=== PATIENT | male | born 1975 | race Caucasian/White ===

== ENCOUNTER 2018-11-22 16:15 | Emergency (ER) | payer BC ==
[2018-11-22] MEDS ORDERED: BABY ASPIRIN 81 MG CHEW PO ONE (16:44)
--- NOTE | 2018-11-22 16:50 | ERPHSYRPT ---
<JONES ROSADO TIFFANIE - Last Filed: 11/22/18 19:05> - History of Present Illness Time Seen by Provider: 11/22/18 16:39 Historian: patient Exam Limitations: no limitations Patient Subjective Stated Complaint: Pt states "My chest has been hurting on and off and when I sneeze the pain goes down my left arm. I am having no pain now, it only hurts when I sneeze." Triage Nursing Assessment: PT alert and oriented X 3, skin pwd. Pt ambulates with an upright steady gait, able to speak in clear full sentences. Pt in no apparent respiratory distress. Physician History: 43-year-old white male with history of alpha-1 antitrypsin disease arrives with complaint of intermittent chest pain off and on for several weeks this is associated with shortness of breath. He states he occasionally has pain radiating to his left arm worse if he sneezed he states he has been short of breath. He has no nausea no vomiting. He states today his pain has been going on for a couple of hours. Past medical history includes alpha-1 antitrypsin Past surgical history includes left arm surgery with nerve repair and a torn ligament Social history former smoker patient denies alcohol or illicit drug use. Timing/Duration: other (symptoms for several weeks off and on) Activities at Onset: none Quality: dullness Location: central Chest Pain Radiation: arm (left arm) Severity of Pain-Max: moderate Severity of Pain-Current: none Modifying Factors: Worsens With: antacids, breathing, coughing, defecating, eating, exertion, lying down, morphine, movement, nitroglycerin, oxygen, palpation, rest, aspirin, sitting up, change in position Associated Symptoms: shortness of breath, No nausea, No vomiting, No palpitations, No heartburn, No abdominal pain, No cough, No hurts to breathe, No diaphoresis, No chills, No fever, No fatigue, No weakness, No swelling/lump in chest, No syncope, No rash, No headache, No dizziness, No edema, No back pain Prior Chest Pain/Cardiac Workup: no prior chest pain Nitro Today/Relief: no nitro taken today Aspirin Treatment Today: 81 mg x 4, provided by ED Allergies/Adverse Reactions: No Known Drug Allergies Allergy (Verified 11/22/18 16:20) Home Medications: No Home Meds [No Home Meds] 1 ea MC UD 11/12/14 [History] Hx Tetanus, Diphtheria Vaccination/Date Given: No Hx Influenza Vaccination/Date Given: Yes Hx Pneumococcal Vaccination/Date Given: No Immunizations Up to Date: Yes - Review of Systems Constitutional: No Fever, No Chills Eyes: No Symptoms Ears, Nose, & Throat: No Symptoms Respiratory: Dyspnea, No Cough, No Cyanosis, No Dyspnea on Exertion (FARLEY), No Stridor, No Wheezing Cardiac: No No Symptoms, No Chest Pain, No Edema, No Syncope Abdominal/Gastrointestinal: No Abdominal Pain, No Nausea, No Vomiting, No Diarrhea Genitourinary Symptoms: No Dysuria Musculoskeletal: No Back Pain, No Neck Pain Skin: No Rash Neurological: No No Symptoms, No Dizziness, No Focal Weakness, No Sensory Changes Psychological: No No Symptoms (on) Endocrine: No Symptoms All Other Systems: Reviewed and Negative - Past Medical History Pertinent Past Medical History: Yes Musculoskeletal History: Other Other Medical History: Alpha one antitrypsin deficiency - Past Surgical History Past Surgical History: Yes Musculoskeletal: Orthopedic Surgery Other Surgical History: liver biopsy- no other prior surgeries - Social History Smoking Status: Former smoker Exposure to second hand smoke: No Drug Use: none Patient Lives Alone: No - Nursing Vital Signs Nursing Vital Signs: Initial Vital Signs Temperature 98.6 F 11/22/18 16:15 Pulse Rate 80 11/22/18 16:15 Respiratory Rate 18 11/22/18 16:15 Blood Pressure 139/92 11/22/18 16:15 O2 Sat by Pulse Oximetry 96 11/22/18 16:15 Pain Scale Pain Intensity 0 - Physical Exam General Appearance: no apparent distress, alert, obese Eye Exam: PERRL/EOMI, eyes nml inspection Ears, Nose, Throat Exam: normal ENT inspection, moist mucous membranes Neck Exam: normal inspection, non-tender, supple, full range of motion Respiratory Exam: normal breath sounds, lungs clear, No respiratory distress Cardiovascular Exam: regular rate/rhythm, normal heart sounds, capillary refill <2 sec Gastrointestinal/Abdomen Exam: soft, No tenderness, No mass Back Exam: normal inspection, No CVA tenderness, No vertebral tenderness Extremity Exam: normal inspection, normal range of motion Neurologic Exam: alert, oriented x 3, cooperative, pet handler II-XII nml as tested, normal mood/affect, sensation nml, No motor deficits Skin Exam: normal color SpO2 Interpretation: normal (96%) SpO2: 96 - Course Nursing assessment & vital signs reviewed: Yes EKG Interpreted by Me: RATE, Sinus Rhythm, NORMAL AXIS, Other (EKG: Sinus rhythm , 76 bpm, normal axis, no acute ST or T wave changes noted.) - Radiology Exams Chest X-ray Interpretation: Interpreted by me (no acute disease process noted) Ordered Tests: Active Orders 24 hr Category Date Time Status Trade Analyst STAT Care 11/22/18 16:45 Active EKG-ER Only STAT Care 11/22/18 16:44 Active IV Insertion STAT Care 11/22/18 16:44 Active Pulse Oximetry (ED) STAT Care 11/22/18 16:44 Active CHEST 1 VIEW (PORTABLE) Stat Exams 11/22/18 16:44 Taken AMYLASE Stat Lab 11/22/18 16:30 Completed CBC W DIFF Stat Lab 11/22/18 16:30 Completed CMP Stat Lab 11/22/18 16:30 Completed D-DIMER QUANTITATION Stat Lab 11/22/18 16:30 Completed LIPASE Stat Lab 11/22/18 16:30 Completed TROPONIN Q3H Lab 11/22/18 16:30 Completed TROPONIN Q3H Lab 11/22/18 19:48 Completed TROPONIN Q3H Lab 11/22/18 22:45 Ordered TROPONIN Q3H Lab 11/23/18 01:45 Ordered TROPONIN Q3H Lab 11/23/18 04:45 Ordered Medication Summary Discontinued Medications Generic Name Dose Route Start Last Admin Trade Name Freq PRN Reason Stop Dose Admin Aspirin 324 mg 11/22/18 16:44 11/22/18 17:03 Baby Aspirin 81 Mg Chew PO 11/22/18 16:45 324 mg STAT ONE Administration Aspirin Confirm 11/22/18 17:02 Baby Aspirin 81 Mg Chew Administered 11/22/18 17:03 Dose 324 mg .ROUTE .STK-MED ONE Morphine Sulfate Confirm 11/22/18 19:16 Morphine Sulfate 2 Mg Inj Administered 11/22/18 19:17 Dose 2 mg .ROUTE .STK-MED ONE Morphine Sulfate 2 mg 11/22/18 19:23 11/22/18 19:27 Morphine Sulfate 2 Mg Inj IV 11/22/18 19:24 2 mg STAT ONE Administration Lab/Rad Data: Laboratory Result Diagrams 11/22/18 16:30 11/22/18 16:30 Laboratory Results 11/22/18 11/22/18 11/22/18 Range/Units 19:48 16:30 16:30 WBC (4.0-10.5) K/mm3 RBC (4.1-5.6) M/mm3 Hgb (12.5-18.0) gm/dl Hct (42-50) % MCV (78-100) fl MCH (26-32) pg MCHC (32-36) g/dl RDW (11.5-14.0) % Plt Count (150-450) K/mm3 MPV (6-9.5) fl Gran % (36.0-66.0) % Eos # (Auto) (0-0.5) Absolute Lymphs (auto) (1.0-4.6) Absolute Monos (auto) (0.0-1.3) Lymphocytes % (24.0-44.0) % Monocytes % (0.0-12.0) % Eosinophils % (0.00-5.0) % Basophils % (0.0-0.4) % Absolute Granulocytes (1.4-6.9) Basophils # (0-0.4) D-Dimer (215-500) ng/mL Sodium (137-145) mmol/L Potassium (3.5-5.1) mmol/L Chloride (98-107) mmol/L Carbon Dioxide (22-30) mmol/L Anion Gap (5-15) MEQ/L BUN (9-20) mg/dL Creatinine (0.66-1.25) mg/dL Estimated GFR ML/MIN Glucose (74-106) mg/dL Calcium (8.4-10.2) mg/dL Total Bilirubin (0.2-1.3) mg/dL AST (17-59) U/L ALT (0-50) U/L Alkaline Phosphatase (38-126) U/L Troponin I < 0.012 < 0.012 (0.000-0.034) ng/mL Serum Total Protein (6.3-8.2) g/dL Albumin (3.5-5.0) g/dL Amylase 81 (30-110) U/L Lipase 154 (23-300) U/L 11/22/18 11/22/18 11/22/18 Range/Units 16:30 16:30 16:30 WBC 7.6 (4.0-10.5) K/mm3 RBC 4.98 (4.1-5.6) M/mm3 Hgb 16.2 (12.5-18.0) gm/dl Hct 47.0 (42-50) % MCV 94.4 (78-100) fl MCH 32.5 H (26-32) pg MCHC 34.5 (32-36) g/dl RDW 12.7 (11.5-14.0) % Plt Count 236 (150-450) K/mm3 MPV 11.0 H (6-9.5) fl Gran % 56.9 (36.0-66.0) % Eos # (Auto) 0.54 H (0-0.5) Absolute Lymphs (auto) 1.90 (1.0-4.6) Absolute Monos (auto) 0.80 (0.0-1.3) Lymphocytes % 25.0 (24.0-44.0) % Monocytes % 10.5 (0.0-12.0) % Eosinophils % 7.1 H (0.00-5.0) % Basophils % 0.5 (0.0-0.4) % Absolute Granulocytes 4.32 (1.4-6.9) Basophils # 0.04 (0-0.4) D-Dimer 246 (215-500) ng/mL Sodium 140 (137-145) mmol/L Potassium 3.9 (3.5-5.1) mmol/L Chloride 106 (98-107) mmol/L Carbon Dioxide 25 (22-30) mmol/L Anion Gap 12.6 (5-15) MEQ/L BUN 14 (9-20) mg/dL Creatinine 0.84 (0.66-1.25) mg/dL Estimated GFR > 60.0 ML/MIN Glucose 102 (74-106) mg/dL Calcium 9.4 (8.4-10.2) mg/dL Total Bilirubin 0.40 (0.2-1.3) mg/dL AST 55 (17-59) U/L ALT 72 H (0-50) U/L Alkaline Phosphatase 75 (38-126) U/L Troponin I (0.000-0.034) ng/mL Serum Total Protein 6.9 (6.3-8.2) g/dL Albumin 3.9 (3.5-5.0) g/dL Amylase (30-110) U/L Lipase (23-300) U/L - Progress Progress: improved Air Movement: fair Progress Note: 11/22/18 18:57 43-year-old white male arrives with complaint of chest pain shortness of breath off and on for several weeks today for approximately 2-1/2 hours Patient with stable vitals patient's EKG sinus rhythm 76 bpm normal axis no acute ST or T wave changes Patient's chest x-ray no acute disease process noted patient's CBC within normal limits chemistry essentially normal troponin less than 0.012 amylase and lipase are normal D-dimer within normal limits. Patient is given aspirin 324 mg. Will plan on repeating patient's troponin. 11/22/18 19:[address] Peraza, he will assume care of this patient secondary to shift change - Departure Clinical Impression: Chest pain Condition: Stable Referrals: SANKET GUTIERREZ MD [Primary Care Provider] - Additional Instructions: follow up with primary doctor for further management <VANI PERAZA - Last Filed: 11/22/18 20:24> - Progress Progress Note: 11/22/18 20:23 no cp, hungry and thirsty. wants to go home. 3 hour troponin normal Blood Culture(s) Obtained: No Antibiotics given: No Counseled pt/family regarding: lab results, diagnosis, need for follow-up, rad results - Departure Departure Disposition: Home Critical Care Time: No
[2018-11-22 16:55] LABS: BASOPHIL % 0.5 % (0.0-0.4); Basophil (Absolute #) 0.04 (0-0.4); Eosinophil % 7.1 % (0.00-5.0); Eosinophil (Absolute #) 0.54 (0-0.5); Granulocyte Absolute (ANC) 4.32 (1.4-6.9); Granulocytes % 56.9 % (36.0-66.0); Hemoglobin 16.2 gm/dl (12.5-18.0); Mean Cell Volume 94.4 fl (78-100); Mean Corpuscular Hemoglobin 32.5 pg (26-32); Mean Corpuscular Hgb Concent. 34.5 g/dl (32-36); Monocytes % 10.5 % (0.0-12.0); Platelet Count 236 K/mm3 (150-450); Red Blood Count 4.98 M/mm3 (4.1-5.6); Red Cell Distribution Width 12.7 % (11.5-14.0); White Blood Count 7.6 K/mm3 (4.0-10.5)
[2018-11-22 16:58] LABS: AMYLASE 81 U/L (30-110); LIPASE 154 U/L (23-300)
[2018-11-22 17:00] LABS: ALBUMIN 3.9 g/dL (3.5-5.0); ALKALINE PHOSPHATASE 75 U/L (38-126); ANION GAP 12.6 MEQ/L (5-15); BLOOD UREA NITROGEN 14 mg/dL (9-20); CHLORIDE 106 mmol/L (98-107); Calcium 9.4 mg/dL (8.4-10.2); Carbon Dioxide 25 mmol/L (22-30); Creatinine 1 0.84 mg/dL (0.66-1.25); Glucose 102 mg/dL (74-106); Potassium 3.9 mmol/L (3.5-5.1); SGOT/AST 55 U/L (17-59); SGPT/ALT 72 U/L (0-50); SODIUM 140 mmol/L (137-145); Total Protein 6.9 g/dL (6.3-8.2)
[2018-11-22] MEDS ORDERED: BABY ASPIRIN 81 MG CHEW ONE (17:02)
[2018-11-22] MEDS ORDERED: MORPHINE SULFATE 2 MG INJ ONE (19:16)
[2018-11-22] MEDS ORDERED: MORPHINE SULFATE 2 MG INJ IV ONE (19:23)
[2018-11-22 20:29] VITALS: BP 130/69; PULSE 69; O2SAT 99
--- NOTE | 2018-11-23 08:36 | XRAY ---
Indication: Chest pain, fever, and cough. Comparison: October 07, 2016. Portable apical lordotic chest is clear. Heart and mediastinal structures within normal limits. Bony thorax intact. No new/acute findings. Impression: Nonacute chest.
== END 2018-11-22 20:40 | disposition home or self-care (01) ==
LOC: ED 16:15
DX: R07.9 Chest pain, unspecified (principal); M79.602 Pain in left arm; E88.01 Alpha-1-antitrypsin deficiency
CPT/HCPCS: 36000; 36415; 71045; 80053; 82150; 83690; 84484; 85025; 85379; 93005; 93041; 96374; 99284; J2270; A9270-GY

== ENCOUNTER 2021-09-25 15:21 | Emergency (ER) | payer BC ==
--- NOTE | 2021-09-25 15:33 | ERPHSYRPT ---
- History of Present Illness Time Seen by Provider: 09/25/21 15:32 Source: patient Exam Limitations: no limitations Physician History: This is a 46-year-old morbidly obese patient of Dr. Gutierrez who was diagnosed with COVID-19 infection 3 weeks ago. Patient, in the last 2 weeks, has noticed persistent cough with some mild shortness of breath. He does not have chest pain. Patient does have a history of hypertension and alpha 1 antitrypsin deficiency. Patient was seen by Dr. Gutierrez yesterday and had lab work drawn. He had an elevated D-dimer. Patient also complains of some leg pain with bilateral lower extremities showing increased edema. Patient was sent to the emergency department to obtain a CTA of the chest and bilateral lower extremity venous Dopplers. Timing/Duration: week(s) (2) Cough Quality/Degree: mild Possible Cause: occasional episodes Modifying Factors: Improves With: activity, coughing Associated Symptoms: cough, muscle aches, shortness of breath, No fever, No chest pain/soreness Allergies/Adverse Reactions: No Known Drug Allergies Allergy (Verified 09/25/21 15:36) Home Medications: Lisinopril 10 mg [Zestril 10 MG] 10 mg PO HS 09/25/21 [History] Hx Tetanus, Diphtheria Vaccination/Date Given: No Hx Influenza Vaccination/Date Given: Yes Hx Pneumococcal Vaccination/Date Given: No Travel Risk - International Travel Have you traveled outside of the country in past 3 weeks: No - Coronavirus Screening Are you exhibiting any of the following symptoms?: Yes Symptoms: Cough: New Onset, Shortness of Breath Close contact with a COVID-19 positive Pt in past 14-21 Days: No - Review of Systems Constitutional: No Symptoms Eyes: No Symptoms Ears, Nose, & Throat: No Symptoms Respiratory: Cough, Dyspnea Cardiac: No Symptoms Abdominal/Gastrointestinal: No Symptoms Genitourinary Symptoms: No Symptoms Musculoskeletal: Myalgias (Bilateral lower extremities) Skin: No Symptoms Neurological: No Symptoms Psychological: No Symptoms Endocrine: No Symptoms Hematologic/Lymphatic: No Symptoms Immunological/Allergic: No Symptoms All Other Systems: Reviewed and Negative - Past Medical History Pertinent Past Medical History: Yes Musculoskeletal History: Other Other Medical History: Alpha one antitrypsin deficiency - Past Surgical History Past Surgical History: Yes Musculoskeletal: Orthopedic Surgery Other Surgical History: liver biopsy- no other prior surgeries - Social History Smoking Status: Former smoker Exposure to second hand smoke: No Drug Use: none Patient Lives Alone: No - Nursing Vital Signs Nursing Vital Signs: Initial Vital Signs Temperature 97.1 F 09/25/21 15:30 Pulse Rate 64 09/25/21 15:30 Respiratory Rate 22 09/25/21 15:30 Blood Pressure 128/74 09/25/21 15:30 O2 Sat by Pulse Oximetry 98 09/25/21 15:30 Pain Scale Pain Intensity 1 - Physical Exam General Appearance: no apparent distress, alert, anxiety, obese Eye Exam: PERRL/EOMI, eyes nml inspection Ears, Nose, Throat Exam: normal ENT inspection, moist mucous membranes Neck Exam: normal inspection, non-tender, supple, full range of motion Respiratory Exam: normal breath sounds, lungs clear, airway intact, No chest tenderness, No respiratory distress Cardiovascular Exam: regular rate/rhythm, normal heart sounds, normal peripheral pulses Gastrointestinal/Abdomen Exam: soft, normal bowel sounds, No tenderness Rectal Exam: not done Back Exam: normal inspection, normal range of motion, No CVA tenderness, No vertebral tenderness Extremity Exam: normal range of motion, pelvis stable, pedal edema (Mild bilateral feet and ankles) Neurologic Exam: alert, oriented x 3, cooperative, loan funder II-XII nml as tested, normal mood/affect, nml cerebellar function, nml station & gait, sensation nml Skin Exam: normal color, warm, dry Lymphatic Exam: No adenopathy SpO2 Interpretation: normal O2 Delivery: Room Air - Course Nursing assessment & vital signs reviewed: Yes Ordered Tests: Active Orders 24 hr Category Date Time Status IV Insertion STAT Care 09/25/21 15:53 Active CHEST WITH CONTRAST [CT] Stat Exams 09/25/21 15:53 Completed VENOUS BILATERAL EXTREMITY [US] Stat Exams 09/25/21 15:54 Completed Medication Summary Discontinued Medications Generic Name Dose Route Start Last Admin Trade Name Freq PRN Reason Stop Dose Admin Sodium Chloride 500 mls @ 500 mls/hr 09/25/21 15:53 09/25/21 16:36 Sodium Chloride 0.9% 500 Ml IV 09/25/21 16:52 500 mls/hr .Q1H ONE Administration Sodium Chloride Confirm 09/25/21 16:35 Sodium Chloride 0.9% 500 Ml Administered 09/25/21 16:36 Dose 500 mls @ ud IV .STK-MED ONE - Progress Progress: improved Air Movement: good Progress Note: 09/25/21 17:19 CAT scan of the chest without contrast shows no pulmonary embolus. There is no acute cardiopulmonary process. 09/25/21 17:20 Venous ultrasound of bilateral lower extremities is negative for any DVT Blood Culture(s) Obtained: No Antibiotics given: No Counseled pt/family regarding: diagnosis, need for follow-up, rad results - Departure Departure Disposition: Home Clinical Impression: Bronchitis Condition: Stable Critical Care Time: No Referrals: SANKET GUTIERREZ MD [Primary Care Provider] - Follow up/PCP as directed Additional Instructions: Take your medication as prescribed. Follow-up with Dr. Gutierrez in his office for further management. Prescriptions: Hydrocodone/Acetaminophen [Hydrocodone-Acetamn 7.5-325/15] 10 ml PO Q8H PRN PRN #120 ml MDD 30 ml PRN Reason: Cough Prednisone 10 mg [Deltasone 10 mg] 10 mg PO TID #12 tablet
[2021-09-25] MEDS ORDERED: Sodium Chloride 0.9% 500 ML 500 ML IV ONE ×2 (15:53→16:35)
[2021-09-25 16:57] VITALS: O2SAT 100
--- NOTE | 2021-09-25 17:13 | XRAY ---
Indication: Pulmonary embolus. Elevated d-dimer. Multiple contiguous axial images obtained through the chest using 100 cc Isovue 370 contrast and PE protocol. Comparison: None Good opacification of the pulmonary arteries to include the lobar and segmental branches. No pulmonary embolus. Heart not enlarged. Aorta is normal in course and caliber. No pathologic mediastinal/hilar lymphadenopathy. Lungs demonstrates minimal bilateral dependent atelectasis. Right upper lobe demonstrates 2-3 sub-5 mm indeterminant noncalcified nodules. No infiltrates, effusion, or pneumothorax. Bony thorax intact with minimal degenerative changes throughout the spine. Limited upper abdomen demonstrates fatty liver and 15 cm splenomegaly. Impression: 1. Negative pulmonary embolus. No acute cardiopulmonary abnormalities. 2. Tiny indeterminate right upper lobe noncalcified nodules. Too small for PET CT, recommend follow-up per Fleischner guidelines. 3. Fatty liver and splenomegaly.
--- NOTE | 2021-09-25 17:15 | XRAY ---
Indication: Bilateral edema. Two-dimensional sonogram and color Doppler imaging of the major venous vessels of the left and right leg performed. Comparison: None No thrombus seen in the examined deep venous vessels of the left and right leg including greater saphenous vein. Veins demonstrate normal compressibility. Venous waveforms are normal with and without augmentation. Impression: Left and right legs negative for DVT.
[2021-09-25 17:36] VITALS: BP 138/80; PULSE 70
== END 2021-09-25 17:35 | disposition home or self-care (01) ==
LOC: ED 15:21
DX: J20.9 Acute bronchitis, unspecified (principal); R05.9 Cough, unspecified; M79.10 Myalgia, unspecified site; R06.02 Shortness of breath; I10 Essential (primary) hypertension; E88.01 Alpha-1-antitrypsin deficiency; Z79.891 Long term (current) use of opiate analgesic; Z79.52 Long term (current) use of systemic steroids
CPT/HCPCS: 36000; 71260; 93970; 99284

== ENCOUNTER 2021-11-09 11:24 | Emergency (ER) | payer BC ==
--- NOTE | 2021-11-09 11:47 | ERPHSYRPT ---
- History of Present Illness Time Seen by Provider: 11/09/21 11:45 Source: patient Exam Limitations: no limitations Patient Subjective Stated Complaint: Pt states "My ankles have been swelling and my pants are getting tighter and tighter. They put me on lasix and I am still retaining and having chest pain. I wighed 326 lbs a couple weeks ago." Triage Nursing Assessment: PT presented alert and oriented X 3, skin pwd. PT ambulates with an upright steady gait, able to speak in clear full sentencse pt in no apparent respiratory distress. PT has +2 pitting edema noted bilat lower extremeties. Physician History: This is a morbidly obese 46-year-old white male patient who has a history of hypertension and in the last several weeks had noticed increasing edema in his ankles and his pants becoming tighter. Patient was in this emergency department in September 2021 to undergo a CTA of the chest because of lab work showing an elevated D-dimer with pain in his legs. He was seen in Dr. Mckeon's office on that day. The CTA of the chest on 09/25/2021 was negative for any pulmonary embolism. Patient has a history of alpha 1 antitrypsin deficiency. Despite being placed on Lasix 20 mg orally once a day, in the last 2 weeks, patient has gone from 326 pounds to 339 pounds today. He was also having some intermittent chest pain and became concerned. Patient is also taking supplemental potassium. Timing/Duration: week(s) Severity: mild Associated Symptoms: denies symptoms Allergies/Adverse Reactions: No Known Drug Allergies Allergy (Verified 09/25/21 15:36) Home Medications: Furosemide [Lasix] 20 mg PO DAILY 11/09/21 [History] Losartan Potassium [Cozaar] 100 mg PO BID 11/09/21 [History] Trazodone HCl 100 mg PO HS 11/09/21 [History] Hx Tetanus, Diphtheria Vaccination/Date Given: No Hx Influenza Vaccination/Date Given: Yes Hx Pneumococcal Vaccination/Date Given: No Immunizations Up to Date: Yes Travel Risk - International Travel Have you traveled outside of the country in past 3 weeks: No - Coronavirus Screening Are you exhibiting any of the following symptoms?: No Close contact with a COVID-19 positive Pt in past 14-21 Days: No - Vaccine Status Have you recieved a Covid-19 vaccination: No - Review of Systems Constitutional: No Symptoms Eyes: No Symptoms Ears, Nose, & Throat: No Symptoms Respiratory: No Symptoms Cardiac: Chest Pain (Intermittent but none now) Abdominal/Gastrointestinal: No Symptoms Genitourinary Symptoms: No Symptoms Musculoskeletal: No Symptoms Skin: No Symptoms Neurological: No Symptoms Psychological: No Symptoms Endocrine: No Symptoms Hematologic/Lymphatic: No Symptoms Immunological/Allergic: No Symptoms All Other Systems: Reviewed and Negative - Past Medical History Pertinent Past Medical History: Yes Neurological History: No Pertinent History Cardiac History: Hypertension Respiratory History: Other Endocrine Medical History: Liver Disease Musculoskeletal History: No Pertinent History Other Medical History: LIVER ENZYME DEFICIENCY - ALPHA-1 TRYPTISINE. SX HX: LEFT ULNAR NERVE TRANSPOSITION, TENNIS ELBOW RELEASE AND CARPAL TUNNEL 10 YEARS AGO. - Past Surgical History Past Surgical History: Yes Musculoskeletal: Orthopedic Surgery Other Surgical History: liver biopsy- no other prior surgeries - Social History Smoking Status: Former smoker Exposure to second hand smoke: No Drug Use: none Patient Lives Alone: No - Nursing Vital Signs Nursing Vital Signs: Initial Vital Signs Temperature 97.8 F 11/09/21 11:25 Pulse Rate 79 11/09/21 11:25 Respiratory Rate 22 11/09/21 11:25 Blood Pressure 177/89 11/09/21 11:25 O2 Sat by Pulse Oximetry 98 11/09/21 11:25 Pain Scale Pain Intensity 6 - Physical Exam General Appearance: no apparent distress, alert, anxiety, obese Eye Exam: PERRL/EOMI, eyes nml inspection Ears, Nose, Throat Exam: normal ENT inspection, moist mucous membranes Neck Exam: normal inspection, non-tender, supple, full range of motion Respiratory Exam: normal breath sounds, lungs clear, airway intact, No chest tenderness, No respiratory distress Cardiovascular Exam: regular rate/rhythm, normal heart sounds, normal peripheral pulses Gastrointestinal/Abdomen Exam: soft, normal bowel sounds, No tenderness Rectal Exam: not done Back Exam: normal inspection, normal range of motion, No CVA tenderness, No vertebral tenderness Extremity Exam: pedal edema (Bilateral 2+ ankle and feet edema), swelling Neurologic Exam: alert, oriented x 3, cooperative, dye range feeder II-XII nml as tested, normal mood/affect, nml cerebellar function, nml station & gait, sensation nml Skin Exam: normal color, warm, dry Lymphatic Exam: No adenopathy SpO2 Interpretation: normal SpO2: 98 O2 Delivery: Room Air - Course Nursing assessment & vital signs reviewed: Yes EKG Interpreted by Me: RATE ([id number]), Left [place] Deviation, NORMAL INTERVALS, NORMAL ST-T, Other (There are no acute ischemic changes on today's EKG) Ordered Tests: Active Orders 24 hr Category Date Time Status EKG-ER Only STAT Care 11/09/21 11:50 Active IV Insertion STAT Care 11/09/21 11:50 Active Pulse Oximetry (ED) STAT Care 11/09/21 11:50 Active CBC W DIFF Stat Lab 11/09/21 11:30 Completed CMP Stat Lab 11/09/21 11:30 Completed D-DIMER QUANTITATIVE Stat Lab 11/09/21 11:30 Completed NT PRO BNP Stat Lab 11/09/21 11:30 Completed TROPONIN Q3H Lab 11/09/21 11:30 Completed TROPONIN Q3H Lab 11/09/21 15:00 Ordered TROPONIN Q3H Lab 11/09/21 18:00 Ordered TROPONIN Q3H Lab 11/09/21 21:00 Ordered TROPONIN Q3H Lab 11/10/21 00:00 Ordered UA W/RFX UR CULTURE Stat Lab 11/09/21 12:54 Ordered Medication Summary Discontinued Medications Generic Name Dose Route Start Last Admin Trade Name Freq PRN Reason Stop Dose Admin Furosemide 40 mg 11/09/21 12:15 11/09/21 12:24 Furosemide 40 Mg/4 Ml Vial IV 11/09/21 12:16 40 mg STAT ONE Administration Furosemide Confirm 11/09/21 12:23 Furosemide 40 Mg/4 Ml Vial Administered 11/09/21 12:24 Dose 40 mg .ROUTE .[facility] ONE Lab/Rad Data: Laboratory Result Diagrams 11/09/21 11:30 11/09/21 11:30 Laboratory Results 11/09/21 11/09/21 11/09/21 Range/Units 11:30 11:30 11:30 WBC (4.0-10.5) K/mm3 RBC (4.1-5.6) M/mm3 Hgb (12.5-18.0) gm/dl Hct (42-50) % MCV (78-100) fl MCH (26-32) pg MCHC (32-36) g/dl RDW (11.5-14.0) % Plt Count (150-450) K/mm3 MPV (7.5-11.0) fl Gran % (36.0-66.0) % Eos # (Auto) (0-0.5) Absolute Lymphs (auto) (1.0-4.6) Absolute Monos (auto) (0.0-1.3) Lymphocytes % (24.0-44.0) % Monocytes % (0.0-12.0) % Eosinophils % (0.00-5.0) % Basophils % (0.0-0.4) % Absolute Granulocytes (1.4-6.9) Basophils # (0-0.4) D-Dimer 398 (215-500) ng/mL Sodium 139 (137-145) mmol/L Potassium 3.9 (3.5-5.1) mmol/L Chloride 107 (98-107) mmol/L Carbon Dioxide 26 (22-30) mmol/L Anion Gap 10.1 (5-15) MEQ/L BUN 19 (9-20) mg/dL Creatinine 0.81 (0.66-1.25) mg/dL Estimated GFR > 60.0 ML/MIN Glucose 103 (74-106) mg/dL Calcium 9.2 (8.4-10.2) mg/dL Total Bilirubin 0.60 (0.2-1.3) mg/dL AST 63 H (17-59) U/L ALT 78 H (0-50) U/L Alkaline Phosphatase 72 (38-126) U/L Troponin I < 0.012 (0.000-0.034) ng/mL NT-Pro-B Natriuret Pep 69.8 (0-450) pg/mL Serum Total Protein 6.8 (6.3-8.2) g/dL Albumin 3.9 (3.5-5.0) g/dL 11/09/21 Range/Units 11:30 WBC 5.1 (4.0-10.5) K/mm3 RBC 4.69 (4.1-5.6) M/mm3 Hgb 15.6 (12.5-18.0) gm/dl Hct 45.5 (42-50) % MCV 97.0 (78-100) fl MCH 33.3 H (26-32) pg MCHC 34.3 (32-36) g/dl RDW 12.8 (11.5-14.0) % Plt Count 198 (150-450) K/mm3 MPV 11.6 H (7.5-11.0) fl Gran % 54.2 (36.0-66.0) % Eos # (Auto) 0.33 (0-0.5) Absolute Lymphs (auto) 1.42 (1.0-4.6) Absolute Monos (auto) 0.58 (0.0-1.3) Lymphocytes % 27.7 (24.0-44.0) % Monocytes % 11.3 (0.0-12.0) % Eosinophils % 6.4 H (0.00-5.0) % Basophils % 0.4 (0.0-0.4) % Absolute Granulocytes 2.78 (1.4-6.9) Basophils # 0.02 (0-0.4) D-Dimer (215-500) ng/mL Sodium (137-145) mmol/L Potassium (3.5-5.1) mmol/L Chloride (98-107) mmol/L Carbon Dioxide (22-30) mmol/L Anion Gap (5-15) MEQ/L BUN (9-20) mg/dL Creatinine (0.66-1.25) mg/dL Estimated GFR ML/MIN Glucose (74-106) mg/dL Calcium (8.4-10.2) mg/dL Total Bilirubin (0.2-1.3) mg/dL AST (17-59) U/L ALT (0-50) U/L Alkaline Phosphatase (38-126) U/L Troponin I (0.000-0.034) ng/mL NT-Pro-B Natriuret Pep (0-450) pg/mL Serum Total Protein (6.3-8.2) g/dL Albumin (3.5-5.0) g/dL - Progress Progress: unchanged Counseled pt/family regarding: lab results, diagnosis, need for follow-up, rad results - Departure Departure Disposition: Home Clinical Impression: Pedal edema, Weight gain Condition: Stable Critical Care Time: No [facility] - Follow up/PCP as directed Additional Instructions: Take 20 mg of your Lasix (furosemide) tonight, 11/09/2021. Then increase your Lasix to 20 mg twice a day. Call Dr. Mckeon's office on 11/11/2021 for further evaluation recommendations, and management
[2021-11-09 12:09] LABS: Absolute Neutrophil Ct (ANC) 2.78 (1.4-6.9); Basophil (Absolute #) 0.02 (0-0.4); Eosinophil % 6.4 % (0.00-5.0); Eosinophil (Absolute #) 0.33 (0-0.5); Hematocrit 45.5 % (42-50); Hemoglobin 15.6 gm/dl (12.5-18.0); Lymphocyte (Absolute #) 1.42 (1.0-4.6); Lymphocytes % 27.7 % (24.0-44.0); Mean Corpuscular Hemoglobin 33.3 pg (26-32); Mean Corpuscular Hgb Concent. 34.3 g/dl (32-36); Mean Platelet Volume 11.6 fl (7.5-11.0); Monocyte (Absolute #) 0.58 (0.0-1.3); Monocytes % 11.3 % (0.0-12.0); Neutrophil % 54.2 % (36.0-66.0); Platelet Count 198 K/mm3 (150-450); Red Blood Count 4.69 M/mm3 (4.1-5.6); Red Cell Distribution Width 12.8 % (11.5-14.0); White Blood Count 5.1 K/mm3 (4.0-10.5)
[2021-11-09] MEDS ORDERED: Lasix 40 MG/4 ML IV ONE (12:15)
[2021-11-09] MEDS ORDERED: Lasix 40 MG/4 ML ONE (12:23)
[2021-11-09 12:31] LABS: ALBUMIN 3.9 g/dL (3.5-5.0); ALKALINE PHOSPHATASE 72 U/L (38-126); ANION GAP 10.1 MEQ/L (5-15); BLOOD UREA NITROGEN 19 mg/dL (9-20); CHLORIDE 107 mmol/L (98-107); Calcium 9.2 mg/dL (8.4-10.2); Carbon Dioxide 26 mmol/L (22-30); Creatinine 1 0.81 mg/dL (0.66-1.25); EST GLOMERULAR FILTRATION RATE > 60.0 ML/MIN; Glucose 103 mg/dL (74-106); NT PRO BNP 69.8 pg/mL (0-450); Potassium 3.9 mmol/L (3.5-5.1); SGOT/AST 63 U/L (17-59); SGPT/ALT 78 U/L (0-50); SODIUM 139 mmol/L (137-145); Total Protein 6.8 g/dL (6.3-8.2)
[2021-11-09 12:58] VITALS: O2SAT 98
[2021-11-09 13:08] VITALS: BP 144/73; PULSE 77
[2021-11-09 13:12] LABS: Appearance CLEAR (CLEAR); Bilirubin NEGATIVE (NEGATIVE); Blood NEGATIVE Ery/ul (0-5); Glucose NEGATIVE (NEGATIVE); Ketones NEGATIVE (NEGATIVE); Leukocyte Esterase NEGATIVE (NEGATIVE); Nitrite NEGATIVE (NEGATIVE); Protein,Urine Dip NEGATIVE (Negative); Urobilinogen NORMAL mg/dL (0-1)
[2021-11-09 13:13] LABS: ADD URINE CULTURE? NO (NO); Epithelial Cells RARE /HPF (FEW); RBC NONE SEEN /HPF (0-2)
== END 2021-11-09 13:19 | disposition home or self-care (01) ==
LOC: ED 11:24
DX: R60.9 Edema, unspecified (principal); R63.5 Abnormal weight gain; E88.01 Alpha-1-antitrypsin deficiency; R07.9 Chest pain, unspecified; I10 Essential (primary) hypertension; Z79.899 Other long term (current) drug therapy
CPT/HCPCS: 36000; 36415; 80053; 81001; 83880; 84484; 85025; 85379; 93005; 94760; 96374; 99284; J1940

== ENCOUNTER 2021-11-30 14:47 | Emergency (ER) | payer BC ==
[2021-11-30 15:40] LABS: Absolute Neutrophil Ct (ANC) 4.26 (1.4-6.9); Basophil (Absolute #) 0.03 (0-0.4); Hematocrit 48.3 % (42-50); Hemoglobin 16.9 gm/dl (12.5-18.0); Lymphocyte (Absolute #) 2.49 (1.0-4.6); Lymphocytes % 30.9 % (24.0-44.0); Mean Cell Volume 95.5 fl (78-100); Mean Corpuscular Hemoglobin 33.4 pg (26-32); Mean Platelet Volume 11.6 fl (7.5-11.0); Monocyte (Absolute #) 0.89 (0.0-1.3); Neutrophil % 52.7 % (36.0-66.0); Platelet Count 263 K/mm3 (150-450); Red Blood Count 5.06 M/mm3 (4.1-5.6); Red Cell Distribution Width 13.2 % (11.5-14.0); White Blood Count 8.1 K/mm3 (4.0-10.5)
[2021-11-30 15:49] LABS: INR 1.07 (0.8-3.0); PROTIME 12.6 SECONDS (9.4-12.5)
[2021-11-30 16:01] LABS: ALBUMIN 4.1 g/dL (3.5-5.0); ALKALINE PHOSPHATASE 71 U/L (38-126); AMYLASE 64 U/L (30-110); ANION GAP 12.6 MEQ/L (5-15); BLOOD UREA NITROGEN 22 mg/dL (9-20); CHLORIDE 103 mmol/L (98-107); Calcium 9.3 mg/dL (8.4-10.2); Carbon Dioxide 26 mmol/L (22-30); Creatinine 1 0.97 mg/dL (0.66-1.25); EST GLOMERULAR FILTRATION RATE > 60.0 ML/MIN; Glucose 98 mg/dL (74-106); LIPASE 192 U/L (23-300); NT PRO BNP < 11.5 pg/mL (0-450); SGOT/AST 118 U/L (17-59); SGPT/ALT 117 U/L (0-50); SODIUM 138 mmol/L (137-145); Total Protein 7.1 g/dL (6.3-8.2)
[2021-11-30 16:02] LABS: Erythrocyte Sedimentation Rate 3 mm/hr (0-15)
[2021-11-30 17:13] LABS: WBC 0-2 /HPF (0-5)
[2021-11-30 17:15] LABS: Appearance CLEAR (CLEAR); Bilirubin NEGATIVE (NEGATIVE); Glucose 500 mg/dL (NEGATIVE); Ketones NEGATIVE (NEGATIVE); Nitrite NEGATIVE (NEGATIVE); Ph 6.5 (5-6); Protein,Urine Dip NEGATIVE (Negative); RBC NEGATIVE Ery/ul (0-5); Specific Gravity 1.015 (1.005-1.025); Urine Cultured Indicated? NO; Urobilinogen 0.2 mg/dL (0-1)
[2021-11-30 17:16] LABS: Dipstick done @ ? MAIN LAB
--- NOTE | 2021-11-30 18:33 | ERPHSYRPT ---
- History of Present Illness Time Seen by Provider: 11/30/21 15:00 Historian: patient Exam Limitations: no limitations Patient Subjective Stated Complaint: pt here for chest pain to center of chest after moving boards around outside, aslo co dizziness, feels like room is s pinning, some nausea, was recently dx with CHF and is new medications Triage Nursing Assessment: pt alert, resp easy, skin w/d/p. face mask applied, slight edema not lower legs, he states swelling has gotten better after getting on new water pill, Physician History: Patient is a 46-year-old male who presents with a complaint of chest pain. His problems actually started few weeks ago when he was diagnosed with CHF here in the ER he was seen later by Dr. Guy and was placed on Bumex and Jardiance. He says he has 30 pounds of fluid and he has lost about half of that. His plan he says is from Dr. Guy's to wait until he is lost some of the fluid before he starts any stress test or catheterization. Today he was actually exerting himself moving lumber and will advise choice and became dizzy nauseated and developed some chest discomfort. Timing/Duration: today Activities at Onset: other (Moving lumbar) Quality: fullness Location: substernal Chest Pain Radiation: no radiation Severity of Pain-Max: moderate Severity of Pain-Current: mild Modifying Factors: Improves With: rest Associated Symptoms: nausea, shortness of breath, dizziness Prior Chest Pain/Cardiac Workup: recently seen/treated Nitro Today/Relief: no nitro taken today Aspirin Treatment Today: no aspirin today Allergies/Adverse Reactions: No Known Drug Allergies Allergy (Verified 11/30/21 15:03) Home Medications: Losartan Potassium [Cozaar] 100 mg PO BID 11/09/21 [History] Trazodone HCl 100 mg PO HS 11/09/21 [History] Bumetanide 1 mg [Bumex 1 mg] 1 mg PO BID PRN 11/30/21 [History] Empagliflozin [Jardiance] 1 ea DAILY 11/30/21 [History] Hx Tetanus, Diphtheria Vaccination/Date Given: No Hx Influenza Vaccination/Date Given: No Hx Pneumococcal Vaccination/Date Given: No Immunizations Up to Date: Yes Travel Risk - International Travel Have you traveled outside of the country in past 3 weeks: No - Coronavirus Screening Are you exhibiting any of the following symptoms?: No Close contact with a COVID-19 positive Pt in past 14-21 Days: No - Vaccine Status Have you recieved a Covid-19 vaccination: No - Review of Systems Constitutional: No Fever, No Chills Eyes: No Symptoms Ears, Nose, & Throat: No Symptoms Respiratory: No Cough, No Dyspnea Cardiac: Chest Pain, No Edema, No Syncope Abdominal/Gastrointestinal: No Abdominal Pain, No Nausea, No Vomiting, No Diarrhea Genitourinary Symptoms: No Dysuria Musculoskeletal: No Back Pain, No Neck Pain Skin: No Rash Neurological: Dizziness, No Focal Weakness, No Sensory Changes Psychological: No Symptoms Endocrine: No Symptoms All Other Systems: Reviewed and Negative - Past Medical History Pertinent Past Medical History: Yes Neurological History: No Pertinent History Cardiac History: Congestive Heart Failure, Hypertension Respiratory History: Other Endocrine Medical History: Liver Disease Musculoskeletal History: No Pertinent History Other Medical History: LIVER ENZYME DEFICIENCY - ALPHA-1 TRYPTISINE. SX HX: LEFT ULNAR NERVE TRANSPOSITION, TENNIS ELBOW RELEASE AND CARPAL TUNNEL 10 YEARS AGO. - Past Surgical History Past Surgical History: Yes Musculoskeletal: Orthopedic Surgery Other Surgical History: liver biopsy- no other prior surgeries - Social History Smoking Status: Former smoker Exposure to second hand smoke: No Drug Use: none Patient Lives Alone: No - Nursing Vital Signs Nursing Vital Signs: Initial Vital Signs Temperature 97.2 F 11/30/21 14:56 Pulse Rate 86 11/30/21 14:56 Respiratory Rate 20 11/30/21 14:56 Blood Pressure 108/67 11/30/21 14:56 O2 Sat by Pulse Oximetry 96 11/30/21 14:56 Pain Scale Pain Intensity 5 - Physical Exam General Appearance: mild distress Eye Exam: PERRL/EOMI, eyes nml inspection Ears, Nose, Throat Exam: normal ENT inspection, moist mucous membranes Neck Exam: normal inspection, non-tender, supple, full range of motion Respiratory Exam: normal breath sounds, lungs clear, No respiratory distress Cardiovascular Exam: regular rate/rhythm, normal heart sounds Gastrointestinal/Abdomen Exam: soft, No tenderness, No mass Back Exam: normal inspection, No CVA tenderness, No vertebral tenderness Extremity Exam: normal inspection, normal range of motion Neurologic Exam: alert, oriented x 3, cooperative, normal mood/affect, sensation nml, No motor deficits Skin Exam: normal color, warm, dry SpO2: 90 - Course Nursing assessment & vital signs reviewed: Yes EKG Interpreted by Me: RATE (78), Sinus Rhythm - Radiology Exams Chest X-ray Interpretation: Interpreted by me, Negative Ordered Tests: Active Orders 24 hr Category Date Time Status EKG-ER Only STAT Care 11/30/21 15:28 Active CHEST 1 VIEW (PORTABLE) Stat Exams 11/30/21 15:29 Taken AMYLASE Stat Lab 11/30/21 15:10 Completed CBC W DIFF Stat Lab 11/30/21 15:10 Completed CMP Stat Lab 11/30/21 15:10 Completed D-DIMER QUANTITATIVE Stat Lab 11/30/21 15:10 Completed Erythrocyte Sedimentation Rate Stat Lab 11/30/21 15:10 Completed LIPASE Stat Lab 11/30/21 15:10 Completed Lactic Acid Stat Lab 11/30/21 15:40 Completed MAGNESIUM Stat Lab 11/30/21 15:10 Completed NT PRO BNP Stat Lab 11/30/21 15:10 Completed PROTIME WITH INR Stat Lab 11/30/21 15:10 Completed TROPONIN Q3H Lab 11/30/21 15:10 Completed TROPONIN Q3H Lab 11/30/21 18:00 Completed TROPONIN Q3H Lab 11/30/21 21:30 Ordered TROPONIN Q3H Lab 12/01/21 00:30 Ordered TROPONIN Q3H Lab 12/01/21 03:30 Ordered UA W/RFX CULTURE Stat Lab 11/30/21 16:15 Completed Lab/Rad Data: Laboratory Result Diagrams 11/30/21 15:10 11/30/21 15:10 Laboratory Results 11/30/21 11/30/21 11/30/21 Range/Units 18:00 16:15 15:40 WBC (4.0-10.5) K/mm3 RBC (4.1-5.6) M/mm3 Hgb (12.5-18.0) gm/dl Hct (42-50) % MCV (78-100) fl MCH (26-32) pg MCHC (32-36) g/dl RDW (11.5-14.0) % Plt Count (150-450) K/mm3 MPV (7.5-11.0) fl Gran % (36.0-66.0) % Eos # (Auto) (0-0.5) Absolute Lymphs (auto) (1.0-4.6) Absolute Monos (auto) (0.0-1.3) Lymphocytes % (24.0-44.0) % Monocytes % (0.0-12.0) % Eosinophils % (0.00-5.0) % Basophils % (0.0-0.4) % Absolute Granulocytes (1.4-6.9) Basophils # (0-0.4) ESR (0-15) mm/hr PT (9.4-12.5) SECONDS INR (0.8-3.0) D-Dimer (215-500) ng/mL Sodium (137-145) mmol/L Potassium (3.5-5.1) mmol/L Chloride (98-107) mmol/L Carbon Dioxide (22-30) mmol/L Anion Gap (5-15) MEQ/L BUN (9-20) mg/dL Creatinine (0.66-1.25) mg/dL Estimated GFR ML/MIN Glucose (74-106) mg/dL Lactic Acid 1.4 (0.4-2.0) Calcium (8.4-10.2) mg/dL Magnesium (1.6-2.3) mg/dL Total Bilirubin (0.2-1.3) mg/dL AST (17-59) U/L ALT (0-50) U/L Alkaline Phosphatase (38-126) U/L Troponin I < 0.012 (0.000-0.034) ng/mL NT-Pro-B Natriuret Pep (0-450) pg/mL Serum Total Protein (6.3-8.2) g/dL Albumin (3.5-5.0) g/dL Amylase (30-110) U/L Lipase (23-300) U/L Urinalys Dipstick Clnc MAIN LAB Urine Color YELLOW (YELLOW) Urine Appearance CLEAR (CLEAR) Urine pH 6.5 (5-6) Ur Specific [place] 1.015 (1.005-1.025) POC Urine Protein Conf NEGATIVE (Negative) Urine Ketones NEGATIVE (NEGATIVE) Urine Nitrite NEGATIVE (NEGATIVE) Urine Bilirubin NEGATIVE (NEGATIVE) Urine Urobilinogen 0.2 (0-1) mg/dL Urine Leukocytes NEGATIVE (NEGATIVE) Urine WBC (Auto) 0-2 (0-5) /HPF Urine RBC NEGATIVE (0-5) Suhail/ul Ur Culture Indicated? NO Urine Glucose 500 (NEGATIVE) mg/dL 11/30/21 11/30/21 11/30/21 Range/Units 15:10 15:10 15:10 WBC (4.0-10.5) K/mm3 RBC (4.1-5.6) M/mm3 Hgb (12.5-18.0) gm/dl Hct (42-50) % MCV (78-100) fl MCH (26-32) pg MCHC (32-36) g/dl RDW (11.5-14.0) % Plt Count (150-450) K/mm3 MPV (7.5-11.0) fl Gran % (36.0-66.0) % Eos # (Auto) (0-0.5) Absolute Lymphs (auto) (1.0-4.6) Absolute Monos (auto) (0.0-1.3) Lymphocytes % (24.0-44.0) % Monocytes % (0.0-12.0) % Eosinophils % (0.00-5.0) % Basophils % (0.0-0.4) % Absolute Granulocytes (1.4-6.9) Basophils # (0-0.4) ESR (0-15) mm/hr PT 12.6 H (9.4-12.5) SECONDS INR 1.07 (0.8-3.0) D-Dimer 399 (215-500) ng/mL Sodium 138 (137-145) mmol/L Potassium 4.0 (3.5-5.1) mmol/L Chloride 103 (98-107) mmol/L Carbon Dioxide 26 (22-30) mmol/L Anion Gap 12.6 (5-15) MEQ/L BUN 22 H (9-20) mg/dL Creatinine 0.97 (0.66-1.25) mg/dL Estimated GFR > 60.0 ML/MIN Glucose 98 (74-106) mg/dL Lactic Acid (0.4-2.0) Calcium 9.3 (8.4-10.2) mg/dL Magnesium 2.0 (1.6-2.3) mg/dL Total Bilirubin 0.90 (0.2-1.3) mg/dL AST 118 H (17-59) U/L ALT 117 H (0-50) U/L Alkaline Phosphatase 71 (38-126) U/L Troponin I < 0.012 (0.000-0.034) ng/mL NT-Pro-B Natriuret Pep < 11.5 (0-450) pg/mL Serum Total Protein 7.1 (6.3-8.2) g/dL Albumin 4.1 (3.5-5.0) g/dL Amylase 64 (30-110) U/L Lipase 192 (23-300) U/L Urinalys Dipstick Clnc Urine Color (YELLOW) Urine Appearance (CLEAR) Urine pH (5-6) Ur Specific [place] (1.005-1.025) POC Urine Protein Conf (Negative) Urine Ketones (NEGATIVE) Urine Nitrite (NEGATIVE) Urine Bilirubin (NEGATIVE) Urine Urobilinogen (0-1) mg/dL Urine Leukocytes (NEGATIVE) Urine WBC (Auto) (0-5) /HPF Urine RBC (0-5) Suhail/ul Ur Culture Indicated? Urine Glucose (NEGATIVE) mg/dL 11/30/21 Range/Units 15:10 WBC 8.1 (4.0-10.5) K/mm3 RBC 5.06 (4.1-5.6) M/mm3 Hgb 16.9 (12.5-18.0) gm/dl Hct 48.3 (42-50) % MCV 95.5 (78-100) fl MCH 33.4 H (26-32) pg MCHC 35.0 (32-36) g/dl RDW 13.2 (11.5-14.0) % Plt Count 263 (150-450) K/mm3 MPV 11.6 H (7.5-11.0) fl Gran % 52.7 (36.0-66.0) % Eos # (Auto) 0.40 (0-0.5) Absolute Lymphs (auto) 2.49 (1.0-4.6) Absolute Monos (auto) 0.89 (0.0-1.3) Lymphocytes % 30.9 (24.0-44.0) % Monocytes % 11.0 (0.0-12.0) % Eosinophils % 5.0 (0.00-5.0) % Basophils % 0.4 (0.0-0.4) % Absolute Granulocytes 4.26 (1.4-6.9) Basophils # 0.03 (0-0.4) ESR 3 (0-15) mm/hr PT (9.4-12.5) SECONDS INR (0.8-3.0) D-Dimer (215-500) ng/mL Sodium (137-145) mmol/L Potassium (3.5-5.1) mmol/L Chloride (98-107) mmol/L Carbon Dioxide (22-30) mmol/L Anion Gap (5-15) MEQ/L BUN (9-20) mg/dL Creatinine (0.66-1.25) mg/dL Estimated GFR ML/MIN Glucose (74-106) mg/dL Lactic Acid (0.4-2.0) Calcium (8.4-10.2) mg/dL Magnesium (1.6-2.3) mg/dL Total Bilirubin (0.2-1.3) mg/dL AST (17-59) U/L ALT (0-50) U/L Alkaline Phosphatase (38-126) U/L Troponin I (0.000-0.034) ng/mL NT-Pro-B Natriuret Pep (0-450) pg/mL Serum Total Protein (6.3-8.2) g/dL Albumin (3.5-5.0) g/dL Amylase (30-110) U/L Lipase (23-300) U/L Urinalys Dipstick Clnc Urine Color (YELLOW) Urine Appearance (CLEAR) Urine pH (5-6) Ur Specific [place] (1.005-1.025) POC Urine Protein Conf (Negative) Urine Ketones (NEGATIVE) Urine Nitrite (NEGATIVE) Urine Bilirubin (NEGATIVE) Urine Urobilinogen (0-1) mg/dL Urine Leukocytes (NEGATIVE) Urine WBC (Auto) (0-5) /HPF Urine RBC (0-5) Suhail/ul Ur Culture Indicated? Urine Glucose (NEGATIVE) mg/dL - Progress Progress: improved Air Movement: good Blood Culture(s) Obtained: No Antibiotics given: No - Departure Departure Disposition: Home Clinical Impression: Vertigo Condition: Stable Critical Care Time: No Referrals: SANKET GUTIERREZ MD [Primary Care Provider] - Follow up/PCP as directed Instructions: Vertigo (a Type of Dizziness) (DC) Prescriptions: Meclizine HCl 25 mg [Antivert 25 mg] 25 mg PO TID 10 Days #30 tablet
[2021-11-30 19:07] VITALS: BP 101/64; PULSE 70; O2SAT 97
--- NOTE | 2021-11-30 20:09 | XRAY ---
Indication: Chest pain, dizziness, and CHF. Comparison: September 24, 2021. Portable apical lordotic chest again demonstrates normal heart, lungs, and bony thorax.
== END 2021-11-30 19:07 | disposition home or self-care (01) ==
LOC: ED 14:47
DX: R42 Dizziness and giddiness (principal); R07.9 Chest pain, unspecified; R11.0 Nausea; R06.02 Shortness of breath; I11.0 Hypertensive heart disease with heart failure; I50.9 Heart failure, unspecified; E88.01 Alpha-1-antitrypsin deficiency; Z79.899 Other long term (current) drug therapy
CPT/HCPCS: 36415; 71045; 80053; 81015; 82150; 83605; 83690; 83735; 83880; 84484; 85025; 85379; 85610; 85652; 93005; 99284

== ENCOUNTER 2022-03-16 16:41 | Emergency (ER) | payer BC ==
[2022-03-16 16:58] VITALS: BP 169/96; PULSE 80; O2SAT 96
[2022-03-16] MEDS ORDERED: PERCOCET TABLET 5/325MG PO ONE (17:20)
[2022-03-16] MEDS ORDERED: PERCOCET TABLET 5/325MG ONE (17:26)
--- NOTE | 2022-03-16 17:30 | ERPHSYRPT ---
- History of Present Illness Time Seen by Provider: 03/16/22 16:55 Source: patient Exam Limitations: no limitations Patient Subjective Stated Complaint: Left foot pain Triage Nursing Assessment: Patient ambulated back to ED and transferred self to bed. Patient A+O X3. Patient's skin pink, warm and dry. Patient complains of left foot pain to the inner side of left foot 6/10 when ambulated. Patient states he has been having this pain for a month, but today went to run and heard a pop. Physician History: 46-year-old morbidly obese male presented in the ER with chief complaint of left foot pain. Patient reports having pain for almost a month and earlier he was walking really fast/running and twisted his foot/ankle and heard a popping sound on the medial aspect of left foot. Since then having moderate intensity sharp pain more with ambulation and better with resting. Minimal swelling on the medial aspect. No difficulty movements of ankle. Method of Injury: twisted Occurred: this morning Quality: sharpness Severity of Pain-Max: moderate Severity of Pain-Current: moderate Lower Extremities Pain: foot: left Modifying Factors: Improves With: immobilization. Worsens With: movement Associated Symptoms: popping sensation Allergies/Adverse Reactions: No Known Drug Allergies Allergy (Verified 03/16/22 16:51) Home Medications: Losartan Potassium [Cozaar] 100 mg PO BID 11/09/21 [History] Trazodone HCl 100 mg PO HS 11/09/21 [History] Bumetanide 1 mg [Bumex 1 mg] 1 mg PO BID PRN 11/30/21 [History] Empagliflozin [Jardiance] 1 ea DAILY 11/30/21 [History] Hx Tetanus, Diphtheria Vaccination/Date Given: No Hx Influenza Vaccination/Date Given: No Hx Pneumococcal Vaccination/Date Given: No Immunizations Up to Date: Yes Travel Risk - International Travel Have you traveled outside of the country in past 3 weeks: No - Coronavirus Screening Are you exhibiting any of the following symptoms?: No Close contact with a COVID-19 positive Pt in past 14-21 Days: No - Vaccine Status Have you recieved a Covid-19 vaccination: No - Review of Systems Constitutional: No Symptoms Ears, Nose, & Throat: No Symptoms Respiratory: No Symptoms Cardiac: No Symptoms Abdominal/Gastrointestinal: No Symptoms Genitourinary Symptoms: No Symptoms Musculoskeletal: Injury, Joint Pain Skin: No Symptoms Neurological: No Symptoms Hematologic/Lymphatic: No Symptoms Immunological/Allergic: No Symptoms - Past Medical History Pertinent Past Medical History: Yes Neurological History: No Pertinent History Cardiac History: Congestive Heart Failure, Hypertension Respiratory History: Other Endocrine Medical History: Liver Disease Musculoskeletal History: No Pertinent History Other Medical History: LIVER ENZYME DEFICIENCY - ALPHA-1 TRYPTISINE. SX HX: LEFT ULNAR NERVE TRANSPOSITION, TENNIS ELBOW RELEASE AND CARPAL TUNNEL 10 YEARS AGO. - Past Surgical History Past Surgical History: Yes Musculoskeletal: Orthopedic Surgery Other Surgical History: liver biopsy- no other prior surgeries - Social History Smoking Status: Former smoker Exposure to second hand smoke: No Drug Use: none Patient Lives Alone: No - Nursing Vital Signs Nursing Vital Signs: Initial Vital Signs Temperature 97.1 F 03/16/22 16:52 Pulse Rate 80 03/16/22 16:52 Respiratory Rate 18 03/16/22 16:52 Blood Pressure 169/96 03/16/22 16:52 O2 Sat by Pulse Oximetry 96 03/16/22 16:52 Pain Scale Pain Intensity 6 - Physical Exam General Appearance: no apparent distress, alert Neck Exam: normal inspection, full range of motion Cardiovascular/Respiratory Exam: normal breath sounds, regular rate/rhythm Legs Exam: bilateral leg: non-tender, normal inspection, normal range of motion Ankle Exam: bilateral ankle: non-tender, normal inspection, normal range of motion, no evidence of injury Foot Exam: right foot: non-tender, left foot: bone tenderness (Medial aspect of foot), pain, bilateral foot: normal inspection, normal range of motion, no evidence of injury Neuro/Tendon Exam: normal sensation Mental Status Exam: alert, oriented x 3, cooperative Skin Exam: normal color SpO2 Interpretation: normal SpO2: 96 O2 Delivery: Room Air Ordered Tests: Active Orders 24 hr Category Date Time Status FOOT (MINIMUM 3 VIEWS) Stat Exams 03/16/22 17:11 Taken Medication Summary Discontinued Medications Generic Name Dose Route Start Last Admin Trade Name Freq PRN Reason Stop Dose Admin Oxycodone/Acetaminophen 1 tab 03/16/22 17:20 Oxycodone Hcl/Apap 5 Mg/325 Mg Tablet PO 03/16/22 17:21 STAT ONE - Progress Progress: pain not gone completely Progress Note: 03/16/22 17:27 Given Percocet for symptomatic relief. No obvious fracture dislocation on x- rays reviewed by me. Official report is pending. I believe has ligamentous strain/sprain. Recommended outpatient podiatry follow-up. Placed in walking boot and weightbearing as tolerated. NSAIDs, elevation and ice. 03/16/22 17:28 Counseled pt/family regarding: diagnosis, need for follow-up, rad results - Departure Departure Disposition: Home Clinical Impression: Other sprain of left foot, initial encounter Condition: Stable Critical Care Time: No Referrals: SANKET GUTIERREZ MD [Primary Care Provider] - Follow up/PCP as directed MARCI KEVIN DPM [ACTIVE STAFF] - Follow up/PCP as directed (Tomorrow for reevaluation) Instructions: Foot Fracture (DC), Foot Sprain (DC) Additional Instructions: Follow-up with podiatry for reevaluation tomorrow. Take Tylenol/ibuprofen as needed. Weightbearing as tolerated. Keep it elevated. Intermittent ice application. Return to ER for any worsening. Prescriptions: Ibuprofen 600 mg PO Q6HPRN PRN 10 Days #20 tablet PRN Reason: Pain
--- NOTE | 2022-03-16 18:48 | XRAY ---
Indication: Pain. Comparison: None 3 nonweightbearing views left foot demonstrates small posterior/plantar heel spurs. No other bony, articular, or soft tissue abnormalities.
== END 2022-03-16 17:40 | disposition home or self-care (01) ==
LOC: ED 16:41
DX: S93.602A Unspecified sprain of left foot, initial encounter (principal); X50.0XXA Overexertion from strenuous movement or load, initial encounter; Y93.01 Activity, walking, marching and hiking; M79.672 Pain in left foot; I11.0 Hypertensive heart disease with heart failure; I50.9 Heart failure, unspecified; Z79.899 Other long term (current) drug therapy; Z28.310 Unvaccinated for COVID-19
CPT/HCPCS: 73630; 99282; L4386; A9270-GY

== ENCOUNTER 2024-08-14 11:51 | Emergency (ER) | payer BC ==
[2024-08-14 12:05] VITALS: TEMP 96.5; O2SAT 97
--- NOTE | 2024-08-14 12:21 | ERPHSYRPT ---
- History of Present Illness Time Seen by Provider: 08/14/24 12:12 Source: patient Patient Subjective Stated Complaint: Worsening pain in L knee after slipping on ice and falling this morning. Triage Nursing Assessment: Pt arrives to ED ambulatory to bed 10. Reports slippe d and fell on black ice at 0430 this morning. States has had ongoing issues with L knee pain for years. Pain is worse after falling this morning. Vss on RA, pt answers questions appropriately. No deformities, redness, or swelling noted to knee. Pt amblatory, able to wiggle toes, pedal pulse 2+. Ice pack placed to knee, has call light, given blanket. Physician History: Pt states about 7.5 hours ago at home he slipped on the ice and fell on his left knee with resultant left knee pain; denies tingling/numbness of left foot; denies previous left knee fracture. Allergies/Adverse Reactions: No Known Drug Allergies Allergy (Verified 03/16/22 16:51) Home Medications: Losartan Potassium [Cozaar] 100 mg PO BID 11/09/21 [History] Bumetanide 1 mg [Bumex 1 mg] 1 mg PO BID PRN 11/30/21 [History] Spironolactone 25 mg [Aldactone 25 MG] 0.5 tab PO DAILY 08/14/24 [History] Torsemide [Soaanz] 1 tab PO DAILY 08/14/24 [History] Hx Tetanus, Diphtheria Vaccination/Date Given: No Hx Influenza Vaccination/Date Given: No Hx Pneumococcal Vaccination/Date Given: No Travel Risk - International Travel Have you traveled outside of the country in past 3 weeks: No - Emerging Infectious Disease Are you exhibiting symptoms associated with any current EIDs: No - Review of Systems Musculoskeletal: Joint Pain (left knee pain) - Past Medical History Pertinent Past Medical History: Yes Neurological History: No Pertinent History Cardiac History: Congestive Heart Failure, Hypertension Respiratory History: CHF Endocrine Medical History: Liver Disease Musculoskeletal History: No Pertinent History Other Medical History: LIVER ENZYME DEFICIENCY - ALPHA-1 TRYPTISINE. SX HX: LEFT ULNAR NERVE TRANSPOSITION, TENNIS ELBOW RELEASE AND CARPAL TUNNEL 10 YEARS AGO. - Past Surgical History Past Surgical History: Yes Musculoskeletal: Orthopedic Surgery Other Surgical History: liver biopsy- no other prior surgeries - Social History Smoking Status: Never smoker Exposure to second hand smoke: No Drug Use: none Patient Lives Alone: No - Nursing Vital Signs Nursing Vital Signs: Initial Vital Signs Temperature 96.5 F 08/14/24 11:59 Pulse Rate 83 08/14/24 11:59 Respiratory Rate 16 08/14/24 11:59 Blood Pressure 109/55 08/14/24 11:59 O2 Sat by Pulse Oximetry 97 08/14/24 11:59 Pain Scale Pain Intensity 2 - Physical Exam General Appearance: alert Hips Exam: left: normal range of motion Legs Exam: left leg: normal range of motion Knees Exam: left knee: normal range of motion, soft tissue tenderness (mild patellar tenderness) Ankle Exam: left ankle: normal range of motion Foot Exam: left foot: normal range of motion Neuro/Tendon Exam: normal sensation, normal motor functions Mental Status Exam: alert, cooperative Skin Exam: warm, dry, No cyanosis SpO2 Interpretation: normal SpO2: 97 O2 Delivery: Room Air - Course Nursing assessment & vital signs reviewed: Yes - Radiology Exams Left Knee X-ray Interpretation: Interpreted by me, No Fracture Ordered Tests: Active Orders 24 hr Category Date Time Status Laron Bandage Application -[facility] STAT Care 08/14/24 12:16 Active KNEE (3 VIEWS) Stat Exams 08/14/24 12:16 Taken Medication Summary Discontinued Medications Generic Name Dose Route Start Last Admin Trade Name Marisela PRN Reason Stop Dose Admin Ibuprofen 600 mg 08/14/24 12:16 08/14/24 12:36 Ibuprofen 600 Mg Tablet PO 08/14/24 12:17 600 mg STAT ONE Administration Ibuprofen Confirm 08/14/24 12:35 Ibuprofen 600 Mg Tablet Administered 08/14/24 12:36 Dose 600 mg .ROUTE .STK-MED ONE - Progress Progress: unchanged Counseled pt/family regarding: diagnosis, need for follow-up, rad results Medical Desision Making - Diagnostic Testing Diagnostic test were ordered, analyzed, and reviewed by me: Yes Radiological Interpretation: Interpreted by me - Departure Departure Disposition: Home Clinical Impression: Left knee sprain Condition: Stable Critical Care Time: No Referrals: SANKET GUTIERREZ MD [Primary Care Provider] - Follow up/PCP as directed Instructions: Knee Sprain (DC) Additional Instructions: Follow up with private doctor tomorrow. Elevate left knee above heart level for the next 24 hours. Apply laron wrap to left knee for the next 4 days. Use crutches for ambulation. No weight bearing on left foot for the next 2 days. Take ibuprofen as needed for pain. Forms: Work/School Release Form
[2024-08-14] MEDS ORDERED: MOTRIN 600 MG ONE (12:35)
[2024-08-14] MEDS: MOTRIN 600 MG PO ONE (12:36)
[2024-08-14] MEDS ORDERED: NORCO 5/325 MG ONE (13:20)
[2024-08-14] MEDS: NORCO 5/325 MG PO ONE (13:26)
[2024-08-14 13:30] VITALS: BP 110/67; PULSE 70; RESP 18
--- NOTE | 2024-08-14 18:57 | XRAY ---
Indication: Pain following fall. Comparison: None 3 view left knee demonstrates osteopenia and mild lateral degenerative joint space narrowing. No other bony, articular, or soft tissue abnormalities.
== END 2024-08-14 13:32 | disposition home or self-care (01) ==
LOC: ED 11:51
DX: S83.92XA Sprain of unspecified site of left knee, initial encounter (principal); W00.0XXA Fall on same level due to ice and snow, initial encounter; I11.0 Hypertensive heart disease with heart failure; I50.9 Heart failure, unspecified; Z79.899 Other long term (current) drug therapy
CPT/HCPCS: 73562; 99283; A9270-GY